=== PATIENT | male | born 1965 | race Caucasian/White ===

== ENCOUNTER 2019-04-06 01:12 | Inpatient (IN) | payer OTHER ==
[2019-04-06] VITALS (17 sets, daily range): BP systolic 79–105; BP diastolic 47–76; PULSE 80–94; RESP 8–31; Ht 190.5 cm; Wt 90.9 kg
[~2019-04-06] VITALS: Ht 190.5 cm; Wt 90.9 kg
[2019-04-06] MEDS ORDERED: SOD CHLORIDE 0.9% 1,000 ML IV STA (01:18)
[2019-04-06] MEDS ORDERED: ONDANSETRON 4 MG INJ IV PRN (02:30)
[2019-04-06] MEDS ORDERED: ACETAMINOPHEN 325 MG TAB PO PRN (02:30)
--- NOTE | 2019-04-06 02:50 | ERD ---
ER Documentation Chief Complaint Chief Complaint JENNIFER,from home, BP 67/34 at home,dizziness,weakness,BLE bleeding wounds HPI Is a 54-year-old male brought in by rescue from home with complaints of dizziness and weakness. He said he was changing his dressings for his chronic venous stasis ulcers and he started spurting blood from a varicose vein that ruptured. He said he felt weak and dizzy. He was noted to have a blood pres sure of 67/34 at home. He was given a fluid challenge in the field and blood pressure is somewhat into the mid 70s. He denies any chest pain fevers nausea vomiting. Denies any focal neurologic complaints. Denies any other current issues. ROS All systems reviewed and are negative except as per history of present illness. Medications Home Meds Unable to Obtain Active Prescriptions or Reported Meds Allergies Allergies: Coded Allergies: No Known Allergy (Unverified , 04/06/19) PMhx/Soc History of Surgery: Yes (CARDIAC BYPASS) Anesthesia Reaction: No Hx Neurological Disorder: No Hx Respiratory Disorders: No Hx Cardiac Disorders: Yes (HTN,HLD) Hx Psychiatric Problems: No Hx Miscellaneous Medical Probl: Yes (NEUROPATHY) Hx Alcohol Use: No Hx Substance Use: No Hx Tobacco Use: Yes Smoking Status: Former smoker Physical Exam Vitals Vital Signs Date Temp Pulse Resp B/P (MAP) Pulse Ox O2 O2 Flow FiO2 Time Delivery Rate 04/06/19 Nasal 2 01:35 Cannula 04/06/19 97.0 73 18 75/51 (59) 100 01:22 Physical Exam Const: No acute distress Head: Atraumatic Eyes: Normal Conjunctiva ENT: Normal External Ears, Nose and Mouth. Neck: Full range of motion. No meningismus. Resp: Clear to auscultation bilaterally Cardio: Regular rate and rhythm, no murmurs Abd: Soft, non tender, non distended. Normal bowel sounds Skin: Ruptured varicose veins seen on her right outer tibial region. No active bleeding currently Back: No midline or flank tenderness Ext: No cyanosis, or edema Neur: Awake and alert Psych: Normal Mood and Affect Result Diagram: 04/06/1912204/06/19 0123 Results 24 hrs Laboratory Tests Test 04/06/19 01:23 White Blood Count 9.4 10^3/ul Red Blood Count 2.14 10^6/ul Hemoglobin 5.8 g/dl Hematocrit 18.4 % Mean Corpuscular Volume 86.0 fl Mean Corpuscular Hemoglobin 27.1 pg Mean Corpuscular Hemoglobin Concent 31.5 g/dl Red Cell Distribution Width 22.1 % Platelet Count 255 10^3/UL Mean Platelet Volume 11.5 fl Immature Granulocytes % 0.700 % Neutrophils % % Lymphocytes % % Monocytes % % Eosinophils % % Basophils % % Nucleated Red Blood Cells % 0.2 /100WBC Immature Granulocytes # 0.070 10^3/ul Neutrophils # 10^3/ul Lymphocytes # 10^3/ul Monocytes # 10^3/ul Eosinophils # 10^3/ul Basophils # 10^3/ul Nucleated Red Blood Cells # 10^3/ul Pathologist Review (Hematology) YES Prothrombin Time 17.6 Sec Prothrombin Time Ratio 1.4 INR International Normalized Ratio 1.44 Activated Partial Thromboplast Time 31.3 Sec Sodium Level 134 mmol/L Potassium Level 4.0 mmol/L Chloride Level 107 mmol/L Carbon Dioxide Level 21 mmol/L Anion Gap 6 Blood Urea Nitrogen 41 mg/dl Creatinine 0.96 mg/dl Est Glomerular Filtrat Rate mL/min > 60 mL/min Glucose Level 232 mg/dl Calcium Level 7.4 mg/dl Total Bilirubin 0.4 mg/dl Direct Bilirubin 0.00 mg/dl Indirect Bilirubin 0.4 mg/dl Aspartate Amino Transf (AST/SGOT) 45 IU/L Alanine Aminotransferase (ALT/SGPT) 61 IU/L Alkaline Phosphatase 214 IU/L Troponin I 0.041 ng/ml B-Type Natriuretic Peptide 05274 PG/ML Total Protein 4.2 g/dl Albumin 1.7 g/dl Globulin 2.50 g/dl Albumin/Globulin Ratio 0.68 Current Medications Medications Dose Sig/Abdoul Start Time Status Last (Trade) Ordered Route PRN Stop Time Admin Dose Reason Admin Sodium 1,000 ml @ Q1H STAT 04/06/19 DC 04/06/19 Chloride 1,000 mls/hr IV 01:18 01:34 04/06/19 02:17 Ondansetron 4 mg ER BRIDGE 04/06/19 HCl (Zofran PRN IV 02:30 Inj) NAUSEA/VOMITI 04/07/19 02:29 NG 650 mg ER BRIDGE 04/06/19 Acetaminophen PRN PO 02:30 (Tylenol .MILD PAIN 04/07/19 02:29 Tab) 1-3 OR TEMP Procedures/MDM EKG: Rate/Rhythm: Normal Sinus Rhythm QRS, ST, T-waves: No changes consistent w/ acute ischemia Impression: No evidence of ischemia or arrhythmia Chest X-ray 1V Interpreted by me: Soft Tissue: No acute abn ormalities Bones: No acute abnormalities Mediastinum/Cardiac Silhouette/Lungs: No acute abnormalities Medical decision makin-year-old male with severe symptomatic anemia. At this point he is unstable for transfer. [facility] made aware. Hospitalist made aware of admission. Patient typed and crossmatched for 3 units after fluid challenge. Admitted to telemetry floor Critical Care: Time: 45 minutes, independent of any separately billable procedural time Treatments/Evaluations: Close monitoring and treatment of unstable vital signs, cardiorespiratory, and neurologic status, while maintaining tight balance of fluid, respiratory, and cardiac interventions. Departure Diagnosis: Primary Impression: Hypotension Hypotension type: unspecified hypotension type Qualified Codes: I95.9 - Hypotension, unspecified Condition: Serious NIEVES VASQUEZ Apr 06, 2019 02:50
[2019-04-06] MEDS ORDERED: ALBUTEROL/IPRATROPIUM (NEB) 3 ML AMP NEB PRN (05:30)
[2019-04-06] MEDS ORDERED: NORepinephrine 8MG/250 ML (PMX 250 ML IV SCH (05:30)
[2019-04-06] MEDS: ALBUMIN HUMAN 25% 100 ML IV SCH ×3 (05:30→21:10)
[2019-04-06] MEDS ORDERED: ACETAMINOPHEN 650MG/20.3ML CUP PO PRN (05:30)
[2019-04-06] MEDS ORDERED: VANCOMYCIN IV PER PHARMACY XX SCH ×2 (06:30→09:00)
[2019-04-06] MEDS ORDERED: LIDOCAINE 1% (MPF) 5 ML VIAL SC ONE (07:00)
[2019-04-06] MEDS: INSULIN ASPART [NOVOLOG] 3 ML PEN SC SCH ×4 (07:51→20:44)
[2019-04-06] MEDS ORDERED: VANCOMYCIN HCL 1.75 GM in SOD CHLORIDE 0.9% 500 ML IVPB SCH (08:00)
[2019-04-06] MEDS: FUROSEMIDE 20 MG INJ IV SCH ×3 (09:00→17:38)
[2019-04-06] MEDS: PIPER-TAZO 3.375 GM IV (PMX) 100 ML IVPB SCH ×3 (09:00→17:38)
[2019-04-06] MEDS ORDERED: NA POLYST SULFON 15 GM/60 ML BTL PO ONE (09:00)
--- NOTE | 2019-04-06 09:02 | HP ---
Date/Time of Note Date/Time of Note DATE: 04/06/19 TIME: 08:47 Assessment/Plan VTE Prophylaxis SCD contraindicated: low risk/ambulating Pharmacological prophylaxis: NA/contraindicated Pharm contraindication: bleeding Lines/Catheters IV Catheter Type (from Nrs): Saline Lock Assessment/Plan Assessment/Plan 1. Hypovolemic hypotension, secondary to blood loss -Patient reported losing significant amount of blood from right leg ulcer. He was severely anemic when he came to the ER -Continue blood transfusion -ICU admission for close observation. I expect patient to be downgraded relatively quickly -Pressor support as needed -Albumin -Monitor H&H closely 2. Severe anemia secondary to blood loss: See #1 3. Bilateral lower extremity cellulitis/ulcer -Patient has been dealing with this problem for quite some time and seems to be very frustrated. He has been receiving treatment at outside hospitals -Broad-spectrum IV antibiotic -Arterial study as well as venous study -If blood pressure allows will diurese -Albumin to help with the swelling 4. CHF exacerbation, acute on chronic, likely systolic -will diuresis if blood pressure allows -Follow-up 2D echo results -Albumin to help with the swelling 5. CAD with CABG -Follow-up 2D echo results -No aspirin for now given anemia -No ACEI or beta-milli given hypotension 6. Diabetes: Check A1c -Insulin while in-house 7. Mild hyponatremia: Likely hypervolemic hyponatremia -Just monitor for now Result Diagram: 04/06/19 0820 04/06/19 0123 Results 24hrs Laboratory Tests Test 04/06/19 01:23 04/06/19 08:20 White Blood Count 9.4 10.6 Red Blood Count 2.14 L 2.64 #L Hemoglobin 5.8 *L 7.4 #L Hematocrit 18.4 L 22.0 L Mean Corpuscular Volume 86.0 83.3 Mean Corpuscular Hemoglobin 27.1 L 28.0 L Mean Corpuscular Hemoglobin Concent 31.5 L 33.6 Red Cell Distribution Width 22.1 H 18.6 H Platelet Count 255 194 # Mean Platelet Volume 11.5 H 11.4 H Immature Granulocytes % 0.700 H 0.600 H Neutrophils % 83.4 H Segmented Neutrophils % (Manual) 88 H Lymphocytes % 7.9 L Lymphocytes % (Manual) 6 L Monocytes % 7.9 Monocytes % (Manual) 5 Eosinophils % 0.1 Eosinophils % (Manual) 1 Basophils % 0.1 Nucleated Red Blood Cells % 0.2 H 0.0 Immature Granulocytes # 0.070 H 0.060 H Neutrophils # 8.8 H Lymphocytes (Manual) 0.5 L Lymphocytes # 0.8 Monocytes # 0.8 Monocytes # (Manual) 0.4 Eosinophils # 0.0 Basophils # 0.0 Nucleated Red Blood Cells # 0.0 Pathologist Review (Hematology) YES Platelet Estimate NORMAL Giant Platelets 3 H Polychromasia 3+ Hypochromasia 1+ Poikilocytosis 2+ Anisocytosis 1+ Tear Drop Cells 1+ Echinocytes 1+ Elliptocytes 1+ Prothrombin Time 17.6 H Prothrombin Time Ratio 1.4 INR International Normalized Ratio 1.44 Activated Partial Thromboplast Time 31.3 Sodium Level 134 L Potassium Level 4.0 Chloride Level 107 Carbon Dioxide Level 21 Anion Gap 6 Blood Urea Nitrogen 41 H Creatinine 0.96 Est Glomerular Filtrat Rate mL/min > 60 Glucose Level 232 H Calcium Level 7.4 L Total Bilirubin 0.4 Direct Bilirubin 0.00 Indirect Bilirubin 0.4 Aspartate Amino Transf (AST/SGOT) 45 Alanine Aminotransferase (ALT/SGPT) 61 Alkaline Phosphatase 214 H Troponin I 0.041 B-Type Natriuretic Peptide 49760 H Total Protein 4.2 L Albumin 1.7 L Globulin 2.50 Albumin/Globulin Ratio 0.68 HPI/ROS Admit Date/Time Admit Date/Time Apr 06, 2019 at 02:29 Hx of Present Illness Patient is a 54-year-old male with a history of hypertension, diabetes, dyslipidemia, CAD with CABG who presented to ER complaining of bleeding from the right leg, bilateral lower extremity swelling and redness. He also complains of pain on both of his legs. Patient stated that he has been dealing with the bilateral lower extremity infection and swelling for quite some time now but he said his been progressively getting worse despite treatment. He denied trauma. 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 Prior to coming to the ER, while he was walking to the bathroom, he said significant amount of "blood and water" shot out of his right leg. He also felt somehow dizzy. When he presented to the ER, he was hypotensive with a BP of 75/51. Hemoglobin is found to be 5.8. Patient has received 2 units of PRBCs. PMH/Family/Social Past Medical History Medical History: other (See HPI) Medications Current Medications Ondansetron HCl (Zofran Inj) 4 mg ER BRIDGE PRN IV NAUSEA/VOMITING; Start 04/06/19 at 02:30; Stop 04/07/19 at 02:29 Acetaminophen (Tylenol Tab) 650 mg ER BRIDGE PRN PO .MILD PAIN 1-3 OR TEMP; Start 04/06/19 at 02:30; Stop 04/07/19 at 02:29 Albuterol/ Ipratropium (Duoneb) 3 ml Q2H RESP THERAPY PRN NEB SHORTNESS OF BREATH; Start 04/06/19 at 05:30 Acetaminophen (Tylenol Liquid) 650 mg Q6H PRN PO PAIN LEVEL 1-3 OR FEVER; St art 04/06/19 at 05:30 Norepinephrine 250 ml @ 1.875 mls/ hr PER PROTOCOL IV ; Start 04/06/19 at 05:30 Albumin Human 100 ml @ 100 mls/hr Q8H IV Last administered on 04/06/19at 05:30; Admin Dose 100 MLS/HR; Start 04/06/19 at 05:30; Stop 04/06/19 at 22:29 Diagnostic Test (Pha) (Accu-Chek) XX ; Start 04/07/19 at 02:00 Insulin Aspart (Novolog Insulin Pen) NOVOLOG *MILD* ALGORITHM WITH MEALS B EDTIME SC ; Start 04/06/19 at 07:51 Vancomycin HCl (Vanco Iv Per Pharmacy) VANCOMYCIN PER PHARMACY PER PROTOCOL XX ; Start 04/06/19 at 06:30 Ceftriaxone Sodium 50 ml @ 100 mls/hr DAILY IVPB ; Start 04/06/19 at 09:00 Vancomycin HCl 1.75 gm/Sodium Chloride 500 ml @ 125 mls/hr ONCE IVPB Last administered on 04/06/19at 08:38; Admin Dose 125 MLS/HR; Start 04/06/19 at 08:00; Stop 04/06/19 at 16:00 Vancomycin HCl 250 ml @ 83.333 mls/ hr Q12H IVPB ; Start 04/06/19 at 21:00 Vancomycin HCl (Vanco Iv Per Pharmacy) VANCOMYCIN PER PHARMACY PER PROTOCOL XX ; Start 04/06/19 at 09:00; Status UNV Piperacillin Sod/ Tazobactam Sod 100 ml @ 200 mls/hr Q6 IVPB ; Start 04/06/19 at 09:00; Status UNV Furosemide (Lasix) 20 mg DAILY IV ; Start 04/06/19 at 09:00; Status UNV Sodium Polystyrene Sulfonate (Kayexalate) 30 gm ONCE ONCE PO ; Start 04/06/19 at 09:00; Stop 04/06/19 at 09:01; Status UNV Coded Allergies: No Known Allergy (Unverified , 04/06/19) Past Surgical History Past Surgical Hx: other (See HPI) Family History Significant Family History: no pertinent family hx Social History Alcohol Use: none Smoking Status: Former smoker Drug Use: none Exam/Review of Systems Vital Signs Vitals Vital Signs Date Temp Pulse Resp B/P (MAP) Pulse Ox O2 O2 Flow FiO2 Time Delivery Rate 04/06/19 81 20 104/65 100 Nasal 2.0 07:35 (78) Cannula 04/06/19 96.8 05:45 Intake and Output 04/05/19 04/05/19 04/06/19 1515:00 23:00 07:00 OutputOutput Total 450 ml BalanceBalance -450 ml Exam Constitutional: other (Appears slightly uncomfortable. Able speak in full sentence) Head: normocephalic, atraumatic Eyes: EOMI, PERRL Respiratory: diminished breath sounds Cardiovascular: regular rate and rhythm, nl pulses Gastrointestinal: soft Extremities: other (Bilateral lower extremity edema. Bilateral lower extremity ulcer/cellulitis) NIEVES COBB MD Apr 06, 2019 08:58
[2019-04-06] MEDS: CEFTRIAXONE 1 GM/50 ML (PMX) 50 ML IVPB SCH (12:00)
[2019-04-06] MEDS: METOLAZONE 5 MG TAB PO SCH (13:44)
--- NOTE | 2019-04-06 14:57 | PN ---
Date/Time of Note Date/Time of Note DATE: 04/06/19 TIME: 14:50 Assessment/Plan VTE Prophylaxis Pharmacological prophylaxis: NA/contraindicated Pharm contraindication: other Lines/Catheters Urinary Cath still in place: No Assessment/Plan Hospital Course 1. Hypovolemic hypotension secondary to blood loss and third spacing -Patient reported losing significant amount of blood from right leg ulcer. He was severely anemic when he came to the ER -Status post blood transfusion, transfuse 2 more units -Pressor support as needed -Albumin as needed -Monitor H&H closely 2. Severe anemia secondary to blood loss: See #1 -Transfuse 2 more units as hemoglobin is still low 3. Bilateral lower extremity cellulitis/ulcer -Patient has been dealing with this problem for quite some time and seems to be very frustrated. He has been receiving treatment at outside hospitals -Broad-spectrum IV antibiotic -Arterial study as well as venous study -If blood pressure allows will diurese -Albumin to help with the swelling 4. CHF exacerbation, acute on chronic, likely systolic -Continue diuresis with Lasix, have added metolazone -Follow-up 2D echo results -Albumin to help with the swelling 5. CAD with CABG -Follow-up 2D echo results -No aspirin for now given anemia -No ACEI or beta-milli given hypotension 6. Diabetes: Check A1c -Insulin while in-house 7. Mild hyponatremia: Likely hypervolemic hyponatremia -Monitor DC planning: Patient still hypotensive and not stable for transfer to [place] today Result Diagram: 04/06/19 1207 04/06/19 1207 Results 24hrs Laboratory Tests Test 04/06/19 01:23 04/06/19 08:20 04/06/19 08:29 04/06/19 11:59 White Blood Count 9.4 10.6 Red Blood Count 2.14 L 2.64 #L Hemoglobin 5.8 *L 7.4 #L Hematocrit 18.4 L 22.0 L Mean Corpuscular 86.0 83.3 Volume Mean Corpuscular 27.1 L 28.0 L Hemoglobin Mean Corpuscular 31.5 L 33.6 Hemoglobin Concent Red Cell 22.1 H 18.6 H Distribution Width Platelet Count 255 194 # Mean Platelet Volume 11.5 H 11.4 H Immature 0.700 H 0.600 H Granulocytes % Neutrophils % 83.4 H Segmented 88 H Neutrophils % (Manual) Lymphocytes % 7.9 L Lymphocytes % 6 L (Manual) Monocytes % 7.9 Monocytes % (Manual) 5 Eosinophils % 0.1 Eosinophils % 1 (Manual) Basophils % 0.1 Nucleated Red Blood 0.2 H 0.0 Cells % Immature 0.070 H 0.060 H Granulocytes # Neutrophils # 8.8 H Lymphocytes (Manual) 0.5 L Lymphocytes # 0.8 Monocytes # 0.8 Monocytes # (Manual) 0.4 Eosinophils # 0.0 Basophils # 0.0 Nucleated Red Blood 0.0 Cells # Pathologist YES Review (Hematology) Platelet Estimate NORMAL Giant Platelets 3 H Polychromasia 3+ Hypochromasia 1+ Poikilocytosis 2+ Anisocytosis 1+ Tear Drop Cells 1+ Echinocytes 1+ Elliptocytes 1+ Prothrombin Time 17.6 H Prothrombin Time 1.4 Ratio INR International 1.44 Normalized Ratio Activated 31.3 Partial Thromboplast Time Sodium Level 134 L 135 Potassium Level 4.0 3.9 Chloride Level 107 108 Carbon Dioxide Level 21 22 Anion Gap 6 5 Blood Urea Nitrogen 41 H 35 H Creatinine 0.96 0.74 Est Glomerular > 60 > 60 Filtrat Rate mL/min Glucose Level 232 H 201 Calcium Level 7.4 L 7.6 L Total Bilirubin 0.4 1.0 Direct Bilirubin 0.00 0.00 Indirect Bilirubin 0.4 1.0 Aspartate Amino 45 37 Transf (AST/SGOT) Alanine 61 57 Aminotransferase (AL T/SGPT) Alkaline Phosphatase 214 H 191 H Troponin I 0.041 B-Type Natriuretic 14670 H Peptide Total Protein 4.2 L 4.7 L Albumin 1.7 L 2.2 L Globulin 2.50 2.50 Albumin/Globulin 0.68 0.88 Ratio Hemoglobin A1c 7.3 H Magnesium Level 1.5 L Bedside Glucose 203 184 Test 04/06/19 12:07 White Blood Count 9.4 Red Blood Count 2.46 L Hemoglobin 6.9 *L Hematocrit 20.6 L Mean Corpuscular 83.7 Volume Mean Corpuscular 28.0 L Hemoglobin Mean Corpuscular 33.5 Hemoglobin Concent Red Cell 18.4 H Distribution Width Platelet Count 169 Mean Platelet Volume 11.5 H Immature 0.500 H Granulocytes % Neutrophils % 79.6 H Lymphocytes % 10.3 L Monocytes % 9.2 Eosinophils % 0.3 Basophils % 0.1 Nucleated Red Blood 0.0 Cells % Immature 0.050 H Granulocytes # Neutrophils # 7.5 Lymphocytes # 1.0 Monocytes # 0.9 Eosinophils # 0.0 Basophils # 0.0 Nucleated Red Blood 0.0 Cells # Sodium Level 136 Potassium Level 3.7 Chloride Level 108 Carbon Dioxide Level 22 Anion Gap 6 Blood Urea Nitrogen 32 H Creatinine 0.63 Est Glomerular > 60 Filtrat Rate mL/min Glucose Level 165 Calcium Level 7.5 L Subjective 24 Hr Interval Summary Lymphatic: lymphadema Exam/Review of Systems Exam Vitals Vital Signs Date Temp Pulse Resp B/P (MAP) Pulse Ox O2 O2 Flow FiO2 Time Delivery Rate 04/06/19 84 30 81/48 (59) 100 Room Air 14:00 04/06/19 97.9 12:00 04/06/19 2.0 07:35 Intake and Output 04/05/19 04/05/19 04/06/19 1515:00 23:00 07:00 OutputOutput Total 450 ml BalanceBalance -450 ml Constitutional: alert, oriented Respiratory: clear to auscultation Cardiovascular: regular rate and rhythm Gastrointestinal: soft; No distended Musculoskeletal: nl extremities to inspection Results Results 24hrs Laboratory Tests Test 04/06/19 01:23 04/06/19 08:20 04/06/19 08:29 04/06/19 11:59 White Blood Count 9.4 10.6 Red Blood Count 2.14 L 2.64 #L Hemoglobin 5.8 *L 7.4 #L Hematocrit 18.4 L 22.0 L Mean Corpuscular 86.0 83.3 Volume Mean Corpuscular 27.1 L 28.0 L Hemoglobin Mean Corpuscular 31.5 L 33.6 Hemoglobin Concent Red Cell 22.1 H 18.6 H Distribution Width Platelet Count 255 194 # Mean Platelet Volume 11.5 H 11.4 H Immature 0.700 H 0.600 H Granulocytes % Neutrophils % 83.4 H Segmented 88 H Neutrophils % (Manual) Lymphocytes % 7.9 L Lymphocytes % 6 L (Manual) Monocytes % 7.9 Monocytes % (Manual) 5 Eosinophils % 0.1 Eosinophils % 1 (Manual) Basophils % 0.1 Nucleated Red Blood 0.2 H 0.0 Cells % Immature 0.070 H 0.060 H Granulocytes # Neutrophils # 8.8 H Lymphocytes (Manual) 0.5 L Lymphocytes # 0.8 Monocytes # 0.8 Monocytes # (Manual) 0.4 Eosinophils # 0.0 Basophils # 0.0 Nucleated Red Blood 0.0 Cells # Pathologist YES Review (Hematology) Platelet Estimate NORMAL Giant Platelets 3 H Polychromasia 3+ Hypochromasia 1+ Poikilocytosis 2+ Anisocytosis 1+ Tear Drop Cells 1+ Echinocytes 1+ Elliptocytes 1+ Prothrombin Time 17.6 H Prothrombin Time 1.4 Ratio INR International 1.44 Normalized Ratio Activated 31.3 Partial Thromboplast Time Sodium Level 134 L 135 Potassium Level 4.0 3.9 Chloride Level 107 108 Carbon Dioxide Level 21 22 Anion Gap 6 5 Blood Urea Nitrogen 41 H 35 H Creatinine 0.96 0.74 Est Glomerular > 60 > 60 Filtrat Rate mL/min Glucose Level 232 H 201 Calcium Level 7.4 L 7.6 L Total Bilirubin 0.4 1.0 Direct Bilirubin 0.00 0.00 Indirect Bilirubin 0.4 1.0 Aspartate Amino 45 37 Transf (AST/SGOT) Alanine 61 57 Aminotransferase (AL T/SGPT) Alkaline Phosphatase 214 H 191 H Troponin I 0.041 B-Type Natriuretic 67257 H Peptide Total Protein 4.2 L 4.7 L Albumin 1.7 L 2.2 L Globulin 2.50 2.50 Albumin/Globulin 0.68 0.88 Ratio Hemoglobin A1c 7.3 H Magnesium Level 1.5 L Bedside Glucose 203 184 Test 04/06/19 12:07 White Blood Count 9.4 Red Blood Count 2.46 L Hemoglobin 6.9 *L Hematocrit 20.6 L Mean Corpuscular 83.7 Volume Mean Corpuscular 28.0 L Hemoglobin Mean Corpuscular 33.5 Hemoglobin Concent Red Cell 18.4 H Distribution Width Platelet Count 169 Mean Platelet Volume 11.5 H Immature 0.500 H Granulocytes % Neutrophils % 79.6 H Lymphocytes % 10.3 L Monocytes % 9.2 Eosinophils % 0.3 Basophils % 0.1 Nucleated Red Blood 0.0 Cells % Immature 0.050 H Granulocytes # Neutrophils # 7.5 Lymphocytes # 1.0 Monocytes # 0.9 Eosinophils # 0.0 Basophils # 0.0 Nucleated Red Blood 0.0 Cells # Sodium Level 136 Potassium Level 3.7 Chloride Level 108 Carbon Dioxide Level 22 Anion Gap 6 Blood Urea Nitrogen 32 H Creatinine 0.63 Est Glomerular > 60 Filtrat Rate mL/min Glucose Level 165 Calcium Level 7.5 L Medications Medication Current Medications Ondansetron HCl (Zofran Inj) 4 mg ER BRIDGE PRN IV NAUSEA/VOMITING; Start 04/06/19 at 02:30; Stop 04/07/19 at 02:29 Acetaminophen (Tylenol Tab) 650 mg ER BRIDGE PRN PO .MILD PAIN 1-3 OR TEMP; Start 04/06/19 at 02:30; Stop 04/07/19 at 02:29 Albuterol/ Ipratropium (Duoneb) 3 ml Q2H RESP THERAPY PRN NEB SHORTNESS OF BREATH; Start 04/06/19 at 05:30 Acetaminophen (Tylenol Liquid) 650 mg Q6H PRN PO PAIN LEVEL 1-3 OR FEVER; Start 04/06/19 at 05:30 Norepinephrine 250 ml @ 1.875 mls/ hr PER PROTOCOL IV ; Start 04/06/19 at 05:30 Albumin Human 100 ml @ 100 mls/hr Q8H IV Last administered on 04/06/19at 13:53; Admin Dose 100 MLS/HR; Start 04/06/19 at 05:30; Stop 04/06/19 at 22:29 Diagnostic Test (Pha) (Accu-Chek) XX ; Start 04/07/19 at 02:00 Insulin Aspart (Novolog Insulin Pen) NOVOLOG *MILD* ALGORITHM WITH MEALS BEDT BECKY SC Last administered on 04/06/19at 12:10; Admin Dose 2 UNIT; Start 04/06/19 at 07:51 Vancomycin HCl (Vanco Iv Per Pharmacy) VANCOMYCIN PER PHARMACY PER PROTOCOL XX ; Start 04/06/19 at 06:30 Ceftriaxone Sodium 50 ml @ 100 mls/hr DAILY IVPB Last administered on 04/06/19at 12:00; Admin Dose 100 MLS/HR; Start 04/06/19 at 09:00 Vancomycin HCl 1.75 gm/Sodium Chloride 500 ml @ 125 mls/hr ONCE IVPB Last administered on 04/06/19at 08:38; Admin Dose 125 MLS/HR; Start 04/06/19 at 08:00; Stop 04/06/19 at 16:00 Vancomycin HCl 250 ml @ 83.333 mls/ hr Q12H IVPB ; Start 04/06/19 at 21:00 Piperacillin Sod/ Tazobactam Sod 100 ml @ 200 mls/hr Q6 IVPB Last administered on 04/06/19at 13:17; Admin Dose 200 MLS/HR; Start 04/06/19 at 09:00 Furosemide (Lasix) 20 mg DAILY@0600 IV Last administered on 04/06/19at 12:11; Admin Dose 20 MG; Start 04/06/19 at 09:00 Metolazone (Zaroxolyn) 5 mg DAILY PO Last administered on 04/06/19at 13:44; Admin Dose 5 MG; Start 04/06/19 at 12:30 CRYSTAL BROWN Apr 06, 2019 14:56
[2019-04-06] MEDS: VANCOMYCIN 1 GM (PMX) 250 ML IVPB SCH (20:40)
[2019-04-07] VITALS (16 sets, daily range): BP systolic 93–121; BP diastolic 60–91; PULSE 87–97; RESP 16–45
[2019-04-07] MEDS: PIPER-TAZO 3.375 GM IV (PMX) 100 ML IVPB SCH ×2 (00:40→05:39)
[2019-04-07] MEDS ORDERED: ACCU-CHEK XX SCH (02:00)
[2019-04-07] MEDS: FUROSEMIDE 20 MG INJ IV SCH ×2 (05:40→17:57)
[2019-04-07] MEDS ORDERED: MAGNESIUM SULFATE 1 GM/D5W 100 ML IVPB ONE (07:30)
[2019-04-07] MEDS: INSULIN ASPART [NOVOLOG] 3 ML PEN SC SCH ×3 (08:06→17:42)
[2019-04-07] MEDS: METOLAZONE 5 MG TAB PO SCH (09:15)
[2019-04-07] MEDS: CEFTRIAXONE 1 GM/50 ML (PMX) 50 ML IVPB SCH (09:15)
[2019-04-07] MEDS: VANCOMYCIN 1 GM (PMX) 250 ML IVPB SCH (09:23)
--- NOTE | 2019-04-07 12:40 | RADRPT ---
Echocardiogram Report Patient Name: CINDY GILPatient ID: [id number] : 1965 (54y 2m)Study Date: 04/06/2019 3:37:43 PM Gender: MAccession #: [id number] Tech: SN Location: [facility] Ref.Physician: NIEVES COBB Height(Cm): BSA: Weight(Kg): Quality: AdequateOrder Physician: NIEVES COBB Account #: Procedures: Echocardiographic Report: Transthoracic echocardiogram with complete 2D, M-Mode, and doppler examination. Indications: Congestive Heart Failure. Measurements: 2D/M Mode Doppler Measurement Value Normal Range Measurement Value Normal Range LVIDd 2D 6.2 [ 4.2 - 5.8 ] cm AV Peak Chucky 1.5 [ 100.0 - 170.0 ] cm/sec LVIDs 2D 5.4 [ 2.5 - 4.0 ] cm AV Peak PG 10.0 [ 2.0 - 9.0 ] mmHg LVPWd 2D 1.0 [ 0.6 - 1.0 ] cm LVOT Peak Chucky 0.8 [ 70.0 - 110.0 ] cm/sec IVSd 2D 1.3 [ 0.6 - 1.0 ] cm LVOT Peak PG 3.0 [ 2.0 - 6.0 ] mmHg AoR Diam 2D 2.9 [ 2.6 - 3.4 ] cm MV E Peak Chucky 1.4 [ 60.0 - 130.0 ] cm/sec EDV 2D 194.0 [ 62.0 - 150.0 ] ml MV A Peak Chucky 0.5 [ 100.0 - 120.0 ] cm/sec ESV 2D 144.0 [ 21.0 - 61.0 ] ml MV E/A 2.6 [ 0.8 - 1.5 ] ratio EF 2D 25.8 [ 52.0 - 72.0 ] percent MV Decel Time 176 [ 104 - 258 ] msec LA Dimen 2D 5.4 [ 3.0 - 4.0 ] cm Lat E` Chucky 0.1 [ 10.0 - 15.0 ] cm/sec Lateral E/E` 21.1 [ 1.0 - 2.0 ] ratio MV E/A 2.6 [ 0.8 - 1.5 ] ratio TR Peak Chucky 2.6 [ 100.0 - 280.0 ] cm/sec TR Peak PG 26.0 mmHg RVSP 41.0 [ 10.0 - 36.0 ] mmHg Findings: Left Ventricle: Mild enlargement of left ventricle cavity. Severe left ventricular systolic dysfunction. Ejection fraction is visually estimated at 25 %. Unable to rule out left ventricular thrombus - secondary to shadowing. Contrast echo would be necessary for evaluation. Tissue Doppler/Mitral Doppler indices are consistent with restrictive physiology with markedly elevated left atrial pressure (Stage III-IV diastolic dysfunction). Akinesis of the mid to distal septum, entire apex. Severe hypokinesis of the other [place]. Right Ventricle: Normal right ventricular systolic function. Mild enlargement of right ventricle. Left Atrium: There is severe enlargement of left atrium. Right Atrium: There is moderate enlargement of right atrium. Linear artifact in right atrium suggestive of catheter, pacer lead, or ICD lead. Mitral Valve: Moderate mitral valve regurgitation. Aortic Valve: Normal appearance of the aortic valve. No significant aortic stenosis or insufficiency. Tricuspid Valve: The estimated Peak RVSP is 41 mmHg. Tricuspid valve appears mildly thickened. There is mild to moderate tricuspid regurgitation. Pericardium: Normal pericardium with no significant pericardial effusion. Left pleural effusion seen. Aorta: Normal aortic root. IVC: Dilated IVC without respiratory collapse, however, patient on ventilator. Conclusions: Mild enlargement of left ventricle cavity. Severe left ventricular systolic dysfunction. Ejection fraction is visually estimated at 25 %. Unable to rule out left ventricular thrombus - secondary to shadowing. Contrast echo would be necessary for evaluation. Tissue Doppler/Mitral Doppler indices are consistent with restrictive physiology with markedly elevated left atrial pressure (Stage III-IV diastolic dysfunction). Akinesis of the mid to distal septum, entire apex. Severe hypokinesis of the other [place]. Moderate mitral valve regurgitation. There is mild to moderate tricuspid regurgitation. Linear artifact in right atrium suggestive of catheter, pacer lead, or ICD lead. The estimated Peak RVSP is 41 mmHg. Dilated IVC without respiratory collapse, however, patient on ventilator. Electronically Signed By: Noe Murillo 2019-04-07 12:39:50 PDT
--- NOTE | 2019-04-07 12:48 | DS ---
Date/Time of Note Date/Time of Note DATE: 04/07/19 TIME: 12:39 Discharge Summary Admission/Discharge Info Admit Date/Time Apr 06, 2019 at 02:29 Discharge Date/Time April 07, 2019 Discharge Diagnosis 1. Hypovolemic hypotension secondary to blood loss and third spacing -Patient reported losing significant amount of blood from right leg ulcer. He was severely anemic when he came to the ER -Status post blood transfusion with total of 5 units transfused -No need for pressor support -Status post albumin -Transfer to [facility] as patient belongs to their system 2. Severe anemia secondary to blood loss: See #1 -Status post 5 units of packed red blood cells 3. Bilateral lower extremity cellulitis/ulcer secondary to PVD/venous insufficiency and lower extremity edema -Patient has been dealing with this problem for quite some time and seems to be very frustrated. He has been receiving treatment at outside hospitals -Broad-spectrum IV antibiotic -Arterial study does indicate PVD with mild to moderate stenosis with 30 to 49% stenosis in the right proximal superficial femoral artery and left mid superficial femoral artery -Venous study negative for DVT -Patient requires aggressive diuresis and has been on Lasix 20 mg IV twice daily and metolazone 5 mg daily with improvements in lower extremity swelling -Albumin to help with the swelling 4. CHF exacerbation, acute on chronic, likely systolic -Continue diuresis with Lasix, have added metolazone -Follow-up 2D echo results -Albumin to help with the swelling 5. CAD with CABG -Follow-up 2D echo results -No aspirin for now given anemia -No ACEI or beta-milli given hypotension 6. Diabetes: A1c 7.3 -Insulin while in-house 7. Mild hyponatremia: Likely hypervolemic hyponatremia-resolved Patient Condition: Fair Hospital Course Patient is a 54-year-old male with a history of diabetes and likely CHF with chr onic lower extremity edema and lower extremity ulcers. Etiology of ulcers is likely secondary to venous insufficiency and PVD. Patient does belong to the [place] system but presented with lower extremity cellulitis as well as hypovolemic hypotension secondary to severe anemia and third spacing. Patient did receive 5 units of packed red blood cells as well as albumin and was stable without pressors. Patient did have significant lower extremity swelling which improved with Lasix 20 mg IV twice daily and metolazone 5 mg daily, patient did tolerate this diuretic regimen with no reports of dizziness or symptom medic hypotension. Patient did have a venous study which was negative for DVT and arterial study that did show PVD with mild to moderate stenosis. Patient was stable for transfer to [place], on the day of discharge patient's vitals and physical exam are stable for transfer. Home Meds Unable to Obtain Active Prescriptions or Reported Meds Primary Care Provider Care Physician No Primary Time spent on discharge: > 30 minutes CRYSTAL BROWN Apr 07, 2019 12:48
[2019-04-07] MEDS ORDERED: PENDING SANTYL ORDER FOR WOUND CARE XX PRN (17:30)
[2019-04-07] MEDS ORDERED: BALSAM PERU/CASTOR OIL 60 GM TUBE TOP SCH (21:00)
[2019-04-08] MEDS ORDERED: COLLAGENASE 5 GM (UD JAR) TOP SCH (09:00)
== END 2019-04-07 20:00 | disposition short-term general hospital (02) | DRG 811 ==
LOC: E/R 01:12 → ICU 02:29 → EDBEDREQSVC 05:31 → TEL 04-07 14:38
PROVIDERS: ADMIT Internal Medicine; ATTEND Internal Medicine
PROC: 30233N1 Transfusion of Nonautologous Red Blood Cells into Peripheral Vein, Percutaneous Approach (ICD-10-PCS; principal; 2019-04-06)
PROC: 02HV33Z Insertion of Infusion Device into Superior Vena Cava, Percutaneous Approach (ICD-10-PCS; 2019-04-06)
DX: D62 Acute posthemorrhagic anemia (principal); I50.23 Acute on chronic systolic (congestive) heart failure; L03.116 Cellulitis of left lower limb; L03.115 Cellulitis of right lower limb; L97.211 Non-pressure chronic ulcer of right calf limited to breakdown of skin; L97.821 Non-pressure chronic ulcer of other part of left lower leg limited to breakdown of skin; L97.311 Non-pressure chronic ulcer of right ankle limited to breakdown of skin; E87.1 Hypo-osmolality and hyponatremia; I87.2 Venous insufficiency (chronic) (peripheral); E13.51 Other specified diabetes mellitus with diabetic peripheral angiopathy without gangrene; E11.622 Type 2 diabetes mellitus with other skin ulcer; I11.0 Hypertensive heart disease with heart failure; I25.10 Atherosclerotic heart disease of native coronary artery without angina pectoris; E78.5 Hyperlipidemia, unspecified; B96.5 Pseudomonas (aeruginosa) (mallei) (pseudomallei) as the cause of diseases classified elsewhere; B95.2 Enterococcus as the cause of diseases classified elsewhere; B95.61 Methicillin susceptible Staphylococcus aureus infection as the cause of diseases classified elsewhere; Z79.4 Long term (current) use of insulin; Z95.1 Presence of aortocoronary bypass graft; Z87.891 Personal history of nicotine dependence
CPT/HCPCS: 36415; 36430; 36569; 71045; 76937; 80048; 80053; 82962; 83036; 83735; 83880; 84100; 84484; 85025; 85610; 85730; 86850; 86900; 86901; 86920; 87070; 87081; 93005; 93306; 93922; 93970; J0696; J1815; J1940; J2543; J3370; J3475; J7030; J7040; P9016; P9047